=== PATIENT | female | born 1970 | race Caucasian/White ===

== ENCOUNTER 2021-07-06 14:10 | Inpatient (IN) ==
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
[2021-07-06] MEDS ORDERED: ONDANSETRON INJ 2 MG/ML 2 ML VIAL IV STA (14:31)
[2021-07-06] MEDS ORDERED: ACETAMINOPHEN 500 MG TAB PO STA (14:31)
[2021-07-06] MEDS ORDERED: MAGNESIUM SULFATE / D5W 1 GM/100 ML BAG IV ONE (14:31)
--- NOTE | 2021-07-06 15:01 | XRay Report ---
SINGLE VIEW CHEST CLINICAL HISTORY: Sepsis. FINDINGS: An AP, portable, upright chest radiograph is obtained. No prior studies are available for c omparison at the time of dictation. The examination is degraded by portable technique and patient ro tation. The cardiomediastinal silhouette is unremarkable. Question asymmetric airspace opacities at the left lung base. No large pleural effusion or pneumothorax is seen. The bony thorax is grossly int act. IMPRESSION: Question asymmetric airspace opacities at the left lung base. This could be related to pa tient rotation and atelectasis. Correlate clinically for evidence of a mild infectious/inflammatory p neumonitis. A dedicated PA and lateral examination could be considered for reassessment. ACT 112: Negative or not required by law. Electronically signed by: Figueroa Prescott M.D. 07/06/2021 3:00 PM
[2021-07-06 15:04] LABS: Appearance Urine Turbid (Clear); Bacteria Urine Automated 4+ (Negative); Bilirubin Urine Negative (Negative); Blood Urine Negative (Negative); Color Urine Dark Yellow; Epithelial Cell Urine Auto >30 /lpf (0-5); Glucose Urine UA Negative (Negative); Ketones Urine Negative (Negative); Leukocyte Esterase Urine 2+ (Negative); Nitrite Urine Positive (Negative); Protein Urine 1+ (Negative); Specific Gravity Urine 1.018 (1.000-1.030); Urobilinogen Urine Negative (Negative); WBC Urine Automated >30 /hpf (0-5)
[2021-07-06 15:08] LABS: Pregnancy Test, Urine Negative (Negative)
[2021-07-06 15:16] LABS: Eosinophils # (auto) 0.11 K/uL (0-0.5); Eosinophils % (auto) 2.6 %; Hematocrit (blood only) 39.2 % (37-47); Hemoglobin 12.8 g/dL (12.0-16.0); Immature Granulocytes # (auto) 0.01 K/uL (0.00-0.02); Immature Granulocytes % (auto) 0.2 %; Lymphocytes # (auto) 1.17 K/uL (1.2-3.4); Lymphocytes % (auto) 27.7 %; Mean Corpuscular Hemoglobin 25.7 pg (25-34); Mean Corpuscular Hgb Conc 32.7 g/dL (32-36); Mean Corpuscular Volume 78.6 fL (80-100); Mean Platelet Volume 9.5 fL (7.4-10.4); Monocytes # (auto) 0.49 K/uL (0.11-0.59); Monocytes % (auto) 11.6 %; Neutrophils # (auto) 2.44 K/uL (1.4-6.5); Neutrophils % (auto) 57.9 %; Platelet Count 177 K/uL (130-400); RDW Coefficient of Variation 14.6 % (11.5-14.5); RDW Standard Deviation 41.9 fL (36.4-46.3); Red Blood Count 4.99 M/uL (4.2-5.4); White Blood Count 4.22 K/uL (4.8-10.8)
[2021-07-06 15:21] LABS: Influenza A virus by PCR Negative (Negative); Influenza B virus by PCR Negative (Negative)
[2021-07-06 15:26] LABS: Partial Thromboplastin Ratio 1.2; Partial Thromboplastin Time 32.2 Seconds (21.0-31.0); Prothrombin Time 10.3 Seconds (9.0-12.0)
[2021-07-06] MEDS ORDERED: PIPERACILL/TAZOBAC CONSULT ACTIVE PRN ×2 (15:29→17:50)
[2021-07-06] MEDS ORDERED: PIPERACILLIN/TAZOBACTAM 4.5 GM/120 ML BAG IV ONE (15:29)
[2021-07-06] MEDS ORDERED: AZITHROMYCIN 250 MG TAB PO ONE (15:30)
[2021-07-06 15:38] LABS: Albumin Globulin Ratio 0.5 (0.9-2); Albumin Level 3.2 gm/dl (3.4-5.0); BUN Creatinine Ratio 21.3 (10-20); Bilirubin,Total 0.5 mg/dl (0.2-1.0); Calcium 8.4 mg/dl (8.5-10.1); Creatinine Clr Calc Pharmacy 89.2 ml/min; Est GFR (African American) 124.2 ml/min; Est GFR (Non-African American) 107.2 ml/min; Globulin 6.6 gm/dl (2.5-4.0); Potassium 4.2 mmol/L (3.5-5.1); Total Protein 9.8 gm/dl (6.0-8.3)
--- NOTE | 2021-07-06 16:34 | CT Scan Report ---
CT head/brain wo con CLINICAL HISTORY: 50 years-old Female with head/neck pain; ?sinusitis, untrx'ed HIV. Acute headache with sinusitis TECHNIQUE: Multiple axial CT images of the head were obtained without contrast. A dose lowering tech nique was utilized adhering to the principles of ALARA. CT DOSE: 788.63 mGycm COMPARISON: None. FINDINGS: No acute intracranial hemorrhage, midline shift, intracranial mass, acute territorial ischemia or abn ormal extra-axial collection. Prominence of the lateral ventricles measure up to 4.7 cm transversely. The third and fourth ventricles are also mildly prominent. Mild ill-defined hypodensities within the periventricular white matter. The calvarium is intact. Mastoid air cells are clear. Complete opacification of the frontal and imag ed maxillary sinuses with severe partial opacification of the ethmoid air cells. Small air-fluid leve ls within the sphenoid sinuses. IMPRESSION: 1. No acute intracranial hemorrhage, midline shift or acute territorial infarct. 2. Mild dilation of the ventricles may be on a physiologic basis, however should be correlated clinic ally and with prior imaging to exclude hydrocephalus. 3. Mild periventricular white matter hypodensities are nonspecific. Findings may represent chronic mi crovascular ischemic disease, demyelinating process or transependymal flow of CSF. 4. Severe paranasal sinus disease. ACT 112: Negative or not required by law. The above report was generated using voice recognition software. It may contain grammatical, syntax o r spelling errors. Electronically signed by: Alexandro Barnett M.D. 07/06/2021 4:33 PM
[2021-07-06] MEDS ORDERED: REMDESIVIR 200 MG in SODIUM CHLORIDE 0.9% 210 ML IV STA (16:44)
[2021-07-06] MEDS ORDERED: hydrALAZINE HCL 20 MG/ML VIAL IV ONE (16:45)
[2021-07-06] MEDS ORDERED: amLODIPine BESYLATE 5 MG TAB PO ONE (16:45)
--- NOTE | 2021-07-06 16:52 | Electrocardiogram Report ---
Test Reason : Blood Pressure : / mmHG Vent. Rate : 099 BPM Atrial Rate : 099 BPM P-R Int : 110 ms QRS Dur : 086 ms QT Int : 374 ms P-R-T Axes : 062 056 039 degrees QTc Int : 479 ms Sinus rhythm Voltage criteria for left ventricular hypertrophy Abnormal ECG No previous ECGs available Confirmed by Enoch Puentes ([id number]) on 07/06/2021 4:51:38 PM Referred By: REFERRED SELF Confirmed By:Pierre Puentes
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
[2021-07-06 19:03] LABS: Hepatitis B Surf Ag Rflx Conf Neg (Neg)
[2021-07-06] MEDS: hydrALAZINE HCL 20 MG/ML VIAL IV PRN (20:35)
[2021-07-06] MEDS: valACYclovir HCL 500 MG TABLET PO SCH (20:36)
[2021-07-06] MEDS: KETOROLAC TROMETHAMINE 15 MG/ML VIAL IV PRN (20:49)
[2021-07-06] MEDS: FLUTICASONE PROPIONATE NA SPR 16 GM BTL SCH (22:38)
[2021-07-06] MEDS: OXYMETAZOLINE 0.05% 30 ML BTL PRN (22:39)
[2021-07-06] MEDS: PIPERACILLIN/TAZOBACTAM 3.375 GM in DEXTROSE 5% 100 ML IV SCH (22:43)
[2021-07-06] MEDS: ACETAMINOPHEN 325 MG TAB PO PRN (23:57)
[2021-07-07] MEDS: KETOROLAC TROMETHAMINE 15 MG/ML VIAL IV PRN (02:43)
[2021-07-07] MEDS: PIPERACILLIN/TAZOBACTAM 3.375 GM in DEXTROSE 5% 100 ML IV SCH ×3 (05:53→21:54)
[2021-07-07] MEDS: hydrALAZINE HCL 20 MG/ML VIAL IV PRN ×2 (05:58→23:03)
[2021-07-07 07:19] LABS: Basophils # (auto) 0.01 K/uL (0-0.2); Basophils % (auto) 0.2 %; Eosinophils # (auto) 0.14 K/uL (0-0.5); Eosinophils % (auto) 3.4 %; Hematocrit (blood only) 36.3 % (37-47); Hemoglobin 11.9 g/dL (12.0-16.0); Immature Granulocytes # (auto) 0.01 K/uL (0.00-0.02); Immature Granulocytes % (auto) 0.2 %; Lymphocytes # (auto) 1.33 K/uL (1.2-3.4); Lymphocytes % (auto) 31.9 %; Mean Corpuscular Hemoglobin 25.8 pg (25-34); Mean Corpuscular Hgb Conc 32.8 g/dL (32-36); Mean Corpuscular Volume 78.6 fL (80-100); Monocytes % (auto) 9.6 %; Neutrophils # (auto) 2.28 K/uL (1.4-6.5); Neutrophils % (auto) 54.7 %; Platelet Count 187 K/uL (130-400); RDW Standard Deviation 43.1 fL (36.4-46.3); Red Blood Count 4.62 M/uL (4.2-5.4); White Blood Count 4.17 K/uL (4.8-10.8)
[2021-07-07 07:47] LABS: Albumin Level 2.9 gm/dl (3.4-5.0); BUN Creatinine Ratio 26.7 (10-20); Bilirubin Direct 0.1 mg/dl (0-0.2); Bilirubin,Total 0.6 mg/dl (0.2-1.0); Calcium 7.9 mg/dl (8.5-10.1); Creatinine Clr Calc Pharmacy 72.6 ml/min; Est GFR (African American) 109.2 ml/min; Est GFR (Non-African American) 94.3 ml/min; Magnesium 2.1 mg/dl (1.7-2.4); Potassium 3.8 mmol/L (3.5-5.1); Total Protein 8.8 gm/dl (6.0-8.3)
[2021-07-07] MEDS: AZITHROMYCIN 250 MG TAB PO SCH (08:28)
[2021-07-07] MEDS: FLUTICASONE PROPIONATE NA SPR 16 GM BTL SCH (08:28)
[2021-07-07] MEDS: valACYclovir HCL 500 MG TABLET PO SCH ×3 (08:28→21:51)
[2021-07-07] MEDS: ENOXAPARIN INJ 40 MG/0.4 ML SYR SQ SCH (08:28)
[2021-07-07] MEDS: OXYMETAZOLINE 0.05% 30 ML BTL PRN ×2 (08:29→23:02)
[2021-07-07] MEDS: amLODIPine BESYLATE 5 MG TAB PO SCH (08:38)
[2021-07-07] MEDS ORDERED: FLUTICASONE PROPIONATE NA SPR 16 GM BTL SCH (09:00)
[2021-07-07] MEDS: ACETAMINOPHEN 325 MG TAB PO PRN (13:59)
--- NOTE | 2021-07-07 14:55 | Hospitalist Progress Note ---
Date of Service July 07, 2021 Assessment & Plan (1) UTI (urinary tract infection): Plan: UTI acute asymtpomatic immunocompromised patient -> 100,000 gram negative organisms seen - Continue Zosny 4.5 mg IV q8 - Await culture (2) Acute sinusitis: Plan: seen on head CT with c/o severe sinus pain and pressure, headache, ongoing for months -continue Zosyn -add Afrin, FLonase will benefit from ENT evaluation as an outpt (3) COVID-19: Plan: First symptoms: ~ 07/01/21 First tested: in our system 07/06/21 Vaccinated: No Admission date: 07/06/21 Admission O2 requirement: room air Admission CRP:not ordered Dexamethasone course started: 07/07/21 Remdesivir started: 07/06/21 since is not hypoxic will d/c Tocilizumab given/baricitinib started: not meeting criteria due to oxygen not at level Antibiotics: Zosyn and Azithromycin (4) Hyponatremia: Plan: Na+ 132 no significant change from admission l could be from acute illness, hypovolemia (5) Hypertension: Plan: -started on Norvasc 5 mg - Will hold on JACOB inhibitor at this time secondary to COVID and following of renal function (6) HIV (human immunodeficiency virus infection): Plan: Reported positive by patient no history in our system for review - Not on any Suppressive medications or anti-virals - Mild leukopenia- may be from COVID - HIV PCR RNA titer, CD4, Quantiferon remain pending ID consult pending (7) Shingles: Plan: ? shingles but consistent pain unilateral along T4-T5 dermatome - start on Valacyclovir 1000mg PO TID empirically (8) Hepatitis C: Plan: known, since age 21 with elevated LFTs here was told she did not need treatment in the past HCV ab screen here positive await HCV viral RNA quant (9) Transaminitis: Plan: as above, could be 2/2 HCV but also could be from COVID improving with hydration Admission and Anticipated Discharge Date Admission Date: July 06, 2021 Subjective Patient awake alert appropriate complaining of continued bifrontal headache. States that her thoracic pain which she was attributing to possible shingles outbreak is improved. No other complaints or problems at this time. Review of Systems Review of Systems: Mild distress and fatigue Bifrontal headache, no visual changes no speech or swallowing issues no chest pain, pressure or palpitations no shortness of breath, cough or wheezes no abdominal pain, nausea or vomiting, diarrhea or constipation no dysuria, hematuria or frequency no focal joint pain or swelling no back pain, CVA tenderness or radicular pain No external signs of shingles at this point time no focal signs of weakness or numbness or altered sensation no complaints of anxiety or depression.. Physical Exam Physical Exam: The patient appeared well nourished and normally developed. Vital signs as documented. Head exam is normocephalic atraumatic Neck is without JVD, thyromegaly, or carotid bruits. Lungs are clear to auscultation, no focal loss of breath sounds Cardiac exam, Rhythm is regular.. No murmurs, rubs or gallops. Abdominal exam reveals normal bowel sounds, soft non tender, no masses Extremities are nonedematous and both pedal pulses are present Neurologic exam is alert and oriented, no focal loss of strength or sensation Skin is without bruises or rashes or signs of shingles Psychologically is without concerns for anxiety or depression.. Results & Data Results & Data ([facility]) Vital Signs (Past 12 Hours) Vital Signs Temp Pulse Resp BP Pulse Ox 07/07/21 11:37 97.9 F 108 H 18 135/77 100 07/07/21 07:48 97.5 F L 94 H 14 126/72 99 07/07/21 05:52 98.1 F 92 H 20 164/107 H 99 PG Care Time/CCT Total # of Minutes Spent Total Time Spent with Patient: Total time spent is greater than 50% in coordination of care (as documented) at patient's floor/unit and/or counseling patient: Coding Level of Care Code 16795 Subseq Hosp Care Lvl 2 Diagnoses UTI (urinary tract infection) N39.0; R31.9 Hematuria presence: with hematuria Urinary tract infection type: site unspecified Acute sinusitis J01.90 COVID-19 U07.1 Hyponatremia E87.1 Hypertension I10 Hypertension type: unspecified HIV (human immunodeficiency virus infection) B20 HIV symptom status: unspecified Shingles B02.9 Hepatitis C B19.20 Transaminitis R74.01 (1) UTI (urinary tract infection) Hematuria presence: with hematuria Urinary tract infection type: site unspecified Qualified Code(s): N39.0 - Urinary tract infection, site not specified; R31.9 - Hematuria, unspecified (2) HIV (human immunodeficiency virus infection) HIV symptom status: unspecified Qualified Code(s): B20 - Human immunodeficiency virus [HIV] disease (3) Hypertension Hypertension type: unspecified Qualified Code(s): I10 - Essential (primary) hypertension
[2021-07-07] MEDS ORDERED: dexAMETHasone 6 MG in SYRINGE 0 ML IV SCH (16:00)
[2021-07-07] MEDS ORDERED: REMDESIVIR 100 MG in SODIUM CHLORIDE 0.9% 230 ML IV SCH (20:00)
[2021-07-07] MEDS: ACETAMINOPHEN 500 MG TAB PO PRN (20:09)
[2021-07-07] MEDS: oxyCODONE HCL IR 5 MG TAB (IMMEDIATE RELEASE) PO PRN (23:13)
[2021-07-08] MEDS: PIPERACILLIN/TAZOBACTAM 3.375 GM in DEXTROSE 5% 100 ML IV SCH ×2 (05:15→13:15)
[2021-07-08 06:11] LABS: Hematocrit (blood only) 34.9 % (37-47); Hemoglobin 11.1 g/dL (12.0-16.0); Immature Granulocytes # (auto) 0.01 K/uL (0.00-0.02); Immature Granulocytes % (auto) 0.2 %; Lymphocytes # (auto) 1.23 K/uL (1.2-3.4); Lymphocytes % (auto) 25.3 %; Mean Corpuscular Hemoglobin 24.9 pg (25-34); Mean Corpuscular Hgb Conc 31.8 g/dL (32-36); Mean Corpuscular Volume 78.4 fL (80-100); Mean Platelet Volume 9.7 fL (7.4-10.4); Monocytes # (auto) 0.33 K/uL (0.11-0.59); Monocytes % (auto) 6.8 %; Neutrophils % (auto) 67.7 %; Platelet Count 188 K/uL (130-400); RDW Coefficient of Variation 14.8 % (11.5-14.5); RDW Standard Deviation 42.2 fL (36.4-46.3); Red Blood Count 4.45 M/uL (4.2-5.4); White Blood Count 4.87 K/uL (4.8-10.8)
[2021-07-08 06:30] LABS: BUN Creatinine Ratio 32.4 (10-20); Creatinine Clr Calc Pharmacy 73.5 ml/min; Est GFR (Non-African American) 95.8 ml/min; Magnesium 2.1 mg/dl (1.7-2.4); Potassium 4.1 mmol/L (3.5-5.1)
[2021-07-08] MEDS: oxyCODONE HCL IR 5 MG TAB (IMMEDIATE RELEASE) PO PRN ×3 (07:30→21:34)
[2021-07-08] MEDS: valACYclovir HCL 500 MG TABLET PO SCH ×2 (09:02→13:17)
[2021-07-08 10:07] LABS: Quantiferon Mitogen-NIL >10.00 IU/mL; Quantiferon NIL 0.05 IU/mL; Quantiferon TB Gold Plus NEGATIVE (NEGATIVE); Quantiferon TB1-NIL <0.00 IU/mL; Quantiferon TB2-NIL <0.00 IU/mL
[2021-07-08] MEDS: FLUTICASONE PROPIONATE NA SPR 16 GM BTL SCH ×2 (10:41→21:21)
[2021-07-08] MEDS: ENOXAPARIN INJ 40 MG/0.4 ML SYR SQ SCH (10:42)
[2021-07-08] MEDS: amLODIPine BESYLATE 5 MG TAB PO SCH (10:43)
[2021-07-08] MEDS: OXYMETAZOLINE 0.05% 30 ML BTL PRN (10:43)
[2021-07-08] MEDS: AZITHROMYCIN 250 MG TAB PO SCH (10:43)
--- NOTE | 2021-07-08 12:06 | CT Scan Report ---
CT OF THE CHEST WITHOUT IV CONTRAST CLINICAL HISTORY: Shortness of breath. HIV, ?PJP COMPARISON STUDY: Chest radiograph September 03, 2021. CT DOSE: 218.88 mGycm TECHNIQUE: Axial images of the chest were obtained without IV contrast. Images were reviewed in the axial, sagittal, and coronal planes. IV contrast was not administered for this examination. Automat ed exposure control was utilized for the study. A dose lowering technique was utilized adhering to t he principles of ALARA. FINDINGS: Note is made of a mildly enlarged left lower cervical lymph node on axial image 23 of 281. This node measures 1.8 x 1.1 cm. No enlarged axillary, mediastinal or hilar lymph nodes are present. Prominent right internal mammary chain lymph node measures 8 mm short axis diameter, axial images 91 of 281. No pneumothorax or pleural effusion is noted. Central airways are patent. Minimal subpleural ground glass opacities within the lingula and right middle lobe favor atelectasis. There are no grou nd glass opacities to suggest an infectious process. No acute fracture or suspicious lesion is identi fied within visualized portions of the bony thorax. Borderline splenomegaly is partially imaged on th is exam. Upper abdomen is otherwise unremarkable. IMPRESSION: 1. Minimal subpleural groundglass opacities within the lingula and right middle lobe which favor atel ectasis. No ground glass opacities to suggest an infectious process. 2. Mildly enlarged left lower cervical lymph node. A few additional prominent thoracic lymph nodes, a s described above. 3. Borderline splenomegaly, partially imaged on this exam. ACT 112: Negative or not required by law. Electronically signed by: Corby Duenas M.D. 07/08/2021 12:04 PM
--- NOTE | 2021-07-08 19:08 | Hospitalist Progress Note ---
Date of Service July 08, 2021 Assessment & Plan (1) UTI (urinary tract infection): Plan: To clarifyasymptomatic bacteriuria. Does not have UTI. Agree with infectious disease physician that no antibiotics are warranted. Zosyn stopped (2) Acute sinusitis: Plan: Strongly suspect this is predominantly allergicshe notes that she lives in a house with mold in the basement which she is allergic. She wonders if she has a fungal sinusitisI noted this would not likely be the case, but an allergic reaction/allergic sinusitis related to the house mold would be reasonably probable. Flonase twice daily, Singulair and Benadryl. At discharge, can instruct on nasal irrigation. If this does not improve symptoms, then would ask infectious disease for input on this, as well as probably having her see allergy (3) COVID-19: Plan: First symptoms: ~ 07/01/21 First tested: in our system 07/06/21 Vaccinated: No Doing well, symptoms could all really be attributed to her chronic sinusitis which is likely allergic. She is several days post positive test and about a week post onset of any kind of change in symptoms. No treatment warranted (4) Hyponatremia: Plan: Na+ 132 no significant change from admission l could be from acute illness, hypovolemia (5) Hypertension: Plan: Outpatient follow-up (6) HIV (human immunodeficiency virus infection): Plan: HIV specific labs pending, infectious disease input greatly appreciated. Biktarvy to be started at discharge, outpatient ID follow-up (7) Shingles: Plan: Has had pain for several days, on clarification she notes it is down the side of her neck and left shoulder, and she wonders if it is unrelated to her upper respiratory symptoms. She has absolutely no rash no vesicles no erythema and no focal skin tenderness, and her symptoms across several dermatomesnothing about this appears consistent with shingles, Valtrex stopped (8) Hepatitis C: Plan: known, since age 21 with elevated LFTs here was told she did not need treatment in the past HCV ab screen here positive await HCV viral RNA quant Outpatient follow-up and treatments for this as well (9) Transaminitis: Plan: Outpatient follow-up Plan: Hopefully home tomorrow Admission and Anticipated Discharge Date Admission Date: July 06, 2021 Subjective Generally feeling better, but still unsteady on her feet. Headache finally letting up. Notes sinus congestion symptoms but not a whole lot else. No dysuria. No shortness of breath. Review of Systems Review of Systems: In general she is awake and alert pleasant no distress. HEENT normocephalic atraumatic mucous membranes moist. Breathing unlabored no accessory muscle use good effort. Skin shows no rashes no pallor or icterus. Neuro without focal deficits. Results & Data Results & Data ([facility]) Vital Signs (Past 12 Hours) Vital Signs Temp Pulse Resp BP Pulse Ox 07/08/21 07:15 98.1 F 97 H 18 164/87 H 99 PG Care Time/CCT Total # of Minutes Spent Total Time Spent with Patient: Total time spent is greater than 50% in coordination of care (as documented) at patient's floor/unit and/or counseling patient: Coding Level of Care Code 90934 Subseq Hosp Care Lvl 3 Diagnoses UTI (urinary tract infection) N39.0; R31.9 Hematuria presence: with hematuria Urinary tract infection type: site unspecified Acute sinusitis J01.90 COVID-19 U07.1 Hyponatremia E87.1 Hypertension I10 Hypertension type: unspecified HIV (human immunodeficiency virus infection) B20 HIV symptom status: unspecified Shingles B02.9 Hepatitis C B19.20 Transaminitis R74.01 (1) UTI (urinary tract infection) Hematuria presence: with hematuria Urinary tract infection type: site unspecified Qualified Code(s): N39.0 - Urinary tract infection, site not specified; R31.9 - Hematuria, unspecified (2) Hypertension Hypertension type: unspecified Qualified Code(s): I10 - Essential (primary) hypertension (3) HIV (human immunodeficiency virus infection) HIV symptom status: unspecified Qualified Code(s): B20 - Human immunodeficiency virus [HIV] disease
[2021-07-08] MEDS: MONTELUKAST SODIUM 10 MG TABLET PO SCH (21:20)
[2021-07-08] MEDS: diphenhydrAMINE Capsule 25 MG CAP PO SCH (21:20)
[2021-07-09] MEDS: FLUTICASONE PROPIONATE NA SPR 16 GM BTL SCH ×2 (08:54→19:52)
[2021-07-09] MEDS: amLODIPine BESYLATE 5 MG TAB PO SCH (08:55)
[2021-07-09] MEDS: ENOXAPARIN INJ 40 MG/0.4 ML SYR SQ SCH (08:55)
[2021-07-09] MEDS: oxyCODONE HCL IR 5 MG TAB (IMMEDIATE RELEASE) PO PRN ×3 (09:12→21:12)
[2021-07-09 11:32] LABS: HIV 1 RNA PCR Copies/ML 176000 copies/mL (NOT DETECTED); HIV-1 RNA Log Copies/mL 5.25 (NOT DETECTED); Hepatitis A Antibody IgM NON-REACTIVE (NON-REACTIVE); Hepatitis B Core Antibody IgM NON-REACTIVE (NON-REACTIVE); Hepatitis C Vira RNA (Log) PCR 6.62 Log IU/mL (NOT DETECTED); Hepatitis C Viral RNA by PCR 4150000 IU/mL (NOT DETECTED)
[2021-07-09] MEDS: ACETAMINOPHEN 500 MG TAB PO PRN (19:51)
[2021-07-09] MEDS: MONTELUKAST SODIUM 10 MG TABLET PO SCH (19:51)
[2021-07-09] MEDS: diphenhydrAMINE Capsule 25 MG CAP PO SCH (19:53)
--- NOTE | 2021-07-09 20:05 | Discharge Summary ---
Date of Service July 09, 2021 Admission HPI Per Admitting Provider 50 YOF with past medical history of: HIV- diagnosed ~ 10 years ago (not on any chronic therapy), IV drug abuse quit 10 years ago, Smoker (quit 3 months ago), sinus congestion, shingles. Patient comes in to the [facility] today for evaluation of left sided neck, shoulder, and chest wall pain. She was subsequently found to have COVID 19 and UTI on lab work up. She was started on Zosyn for her UTI and Azithromycin for her COVID. Overall patient reports being diagnosed with HIV ~ 10 years ago likely from IV drug abuse- she reports being diagnosed at [facility] possibly and can not recall her physician's name. She states that she was on one medication but can't remember what it was. She relocated to this area approx 3 years ago and has not been back to follow up with her HIV team or establish PCP care here. She reports that she had shingles about 2 years ago on the right side and her pain is very similar to that. It started in her left upper back and comes down around her shoulder blade to mid axillary line. This is painful to touch and does not hurt with shoulder rotation. Patient is also noted to be hypertensive while in the [facility] and has not been on any medications for this in the past. For her COVID she does have sinus congestion however she endorses this as chronic over the past 6 months following mold exposure in her basement. She may have felt warm 3 days ago like she had a fever, but did not check her temperature. She has had mild sore throat and body myalgias that have mostly resolved. Patient will be admitted and receive Remdesevir, her HIV status, CD4 count, continue antibiotics as above, and Valacyclovir PO for possible shingles. Will consult ID for her HIV management recommendations. Patient is not vaccinated against COVID and her COVID test on admission is: POSITIVE Principal Diagnosis Mild Covid, chronic sinusitis Discharge Exam General she is awake and alert pleasant no distress. HEENT normocephalic atraumatic mucous membranes moist. Lungs are clear to auscultation bilaterally no rales rhonchi or wheezes good effort. No accessory muscle use. No conversational dyspnea. Skin shows no rashes no pallor or icterus. Neuro without focal deficits. Discharge Data Allergies Allergy/AdvReac Type Severity Reaction Status Date / Time No Known Allergies Allergy Unverified 07/06/21 16:57 Consultations 07/06/21 15:51 ED Decision to Admit Stat 07/06/21 17:50 Consult Infectious Diseases Routine Ordered Studies 07/06/21 14:31 CT head/brain wo con Stat 07/08/21 09:28 CT chest diagnostic wo con Routine Hospital Course (1) UTI (urinary tract infection): To clarifyasymptomatic bacteriuria. Does not have UTI. Agree with infectious disease physician that no antibiotics are warranted. Zosyn stopped, no symptoms developed (2) Acute sinusitis: Strongly suspect this is predominantly allergicshe notes that she lives in a house with mold in the basement which she is allergic. She wonders if she has a fungal sinusitisI noted this would not likely be the case, but an allergic reaction/allergic sinusitis related to the house mold would be reasonably probable. Flonase twice daily, Benadryl at bedtime and saline for nasal irrigation. If this does not improve symptoms, then would ask infectious disease for input on the remote and unlikely probability of an actual fungal sinusitis, as well as probably having her see smash piecer, but hopefully above treatment will improve her symptoms. (3) COVID-19: First symptoms: ~ 07/01/21 First tested: in our system 07/06/21 Vaccinated: No Doing well, symptoms could all really be attributed to her chronic sinusitis which is likely allergic. She is several days post positive test and about a week post onset of any kind of change in symptoms. No treatment warranted (4) Hyponatremia: Na+ 132 no significant change from admission l could be from acute illness, hypovolemia (5) Hypertension: Outpatient follow-up (6) HIV (human immunodeficiency virus infection): HIV specific labs pending, infectious disease input greatly appreciated. Biktarvy to be started at discharge, outpatient ID follow-up (7) Shingles: Has had pain for several days, on clarification she notes it is down the side of her neck and left shoulder, and she wonders if it is unrelated to her upper respiratory symptoms. She has absolutely no rash no vesicles no erythema and no focal skin tenderness, and her symptoms across several dermatomesnothing about this appears consistent with shingles, Valtrex stopped (8) Hepatitis C: known, since age 21 with elevated LFTs here was told she did not need treatment in the past HCV ab screen here positive await HCV viral RNA quant Outpatient follow-up and treatments for this as well (9) Transaminitis: Outpatient follow-uplikely relates to hep C Stable for home, PCP and infectious disease follow-up being arranged Total Time Total Time Spent Total Time Spent (In Minutes): Less than 30 Discharge Plan Discharge Items Patient Disposition: Home - Self-Care Reason For Visit: HIV, COVID 19, ? SHINGLES Discharge Diagnosis: mild covid Activity: Resume your previous activity Non-emergency contact: Primary Care Provider and Specialist Call non-emergency contact if: you have any medication questions and your symptoms worsen Follow-up/Referrals: Hoang Miller MD [Outside Practitioners] - 07/16/21 12:00 pm (To become established with [facility]. They will send you an appointment reminder via email. Please bring photo ID and your insurance card to this appointment if possible. ) Jhonny Zarate II, DO [Physician] - 09/02/21 9:00 am (Appointment will be at [address] [place] [address].) Diet: Regular Addtl Attending Provider Instructions: Mild Covid -Fortunately, while you did test positive for Covid, your symptoms appear to be very mildreally given that your sinus congestion could be more easily explained by the chronic allergic sinusitis, I question whether you had any symptoms at all as it relates directly to Covid. -Fortunately because of this, no specific treatment is needed, and is quite safe to be home -Given that you first tested positive on 07/06, and have not developed any serious symptoms by now, it is highly unlikely that you will. That said, of course, if you start to develop shortness of breath or high feverswe would definitely want you seen again -By guidelines, you should quarantine until 07/11, and then wear a mask when around others for 5 days thereafter Sinusitis -You definitely have pretty significant sinusitis, as we discussed, I strongly suspect it is predominantly allergic. While you do have a mold in the basement, it is not likely that the sinusitis is actually a fungal infection itself, much more likely it is an allergic reaction to the constant exposure. Your CT scan does show severe sinusitis type features, but nothing consistent with a fungus ball/etc. -We will manage the sinusitis symptoms fairly aggressively as though it is allergicFlonase (fluticasone) twice a day (the nasal steroids like this tends to be the most effective "stand-alone" treatment for allergic sinusitis), and will use an antihistamine with Benadryl at bedtime -Give it a good month or soif your symptoms are not improving/worsening, then we will want to look into things furtherto that end Dr. Zarate would be able to give thoughts as to whether or not there truly is a fungal infection going on, and we would also at the same time ask that you get referred to an smash piecer (given that the most likely reason for failure to improve or worsening would simply be allergic sinusitis that is refractory to our current treatment) HIV -Most of your "important" HIV labs (CD4, HIV genotyping, etc.) are still pendingthose labs should be back by next week. This will help guide you and Dr. Zarate as far as further treatment -In the meantime, he has recommended that we start you on Biktarvy once a dayprescription has been sent -As we have been discussing, most people do very well with HIV treatment in the modern era. To that end the most important thing for you would be to make sure that you do not "slip through the cracks"fortunately are now set up with Dr. Zarate, and he is excellent with this kind of disease management Hepatitis C -Your preliminary labs do look consistent with hepatitis C as well. The follow-up labs that are more specific are still pendingand they should be back around the same time as the above-mentioned HIV labs -Your liver does show a very mild degree of inflammationnothing out of the ordinary for hepatitis C, and certainly nothing that warrants immediate concern; really just for ongoing follow-up -Fortunately, we now live at a time where hepatitis C is usually quite effectively treatedDr. Zarate can guide you on this as well -Because there is a mild degree of liver inflammation, I would definitely have you refrain from any alcohol, and while pain medicine such as Tylenol and ibuprofen will be safe and reasonable doses, I would have you stay less than 2000 mg in any given day with Tylenol, and less than about 600 mg 3 times a day with ibuprofenand I would definitely only have you use either for a short period of time (such as a few days) before stopping for a while Elevated blood pressure -Your blood pressures do look a bit elevated, consistent with probably a base line of hypertension. To that end, we have started a medicine called amlodipineand you seem to be tolerating it quite well. When you get set up with your family doctor (which is in process as we speak) they will take control of evaluating your blood pressure, and adjusting or changing medicines if necessary Pending Studies at Discharge: Yes (HIV, hep C labs) Stand-Alone Forms: My [facility], Smoking Cessation Medications and DC Order Prescriptions: New diphenhydramine HCl [Benadryl] 25 mg capsule 25 mg PO HS Qty: 30 RF: 0 fluticasone propionate [Flonase Allergy Relief] 50 mcg/actuation spray,suspension 1 spray intranasal BID Qty: 16 RF: 0 acetaminophen 500 mg capsule 500 mg PO Q6H PRN (Reason: pain) Qty: 90 RF: 0 ibuprofen 600 mg tablet 600 mg PO Q8H PRN (Reason: pain) Qty: 30 RF: 0 amlodipine [Norvasc] 5 mg Tablet 5 mg PO QAM Qty: 30 RF: 0 Biktarvy 50-200-25 mg tablet 1 tab PO DAILY Qty: 30 RF: 0 Discharge Orders: Discharge Order (Routine); Ordered 07/09/21 Ordered By: Isidro Childs Admission Data Admit Date/Time: 07/06/21 16:31 Attending Provider: Isidro Childs Admit Provider: Kristy Arnold Primary Care Provider: PCP,NO Other Providers: Kristy Arnold ; Darrin Ann ; Marietta Epps ; Connor Mead I. ; Jhonny Zarate II ; Aleyda Barbour ; Eriberto Yu ; Richard Gonzalez Other Interventions: Discharge Summary Assessment (RN) Last Done: 07/09/21 15:55 Coding Level of Care Code D/C DAY MANAGEMENT <30 MINS Diagnoses UTI (urinary tract infection) N39.0; R31.9 Hematuria presence: with hematuria Urinary tract infection type: site unspecified Acute sinusitis J01.90 COVID-19 U07.1 Hyponatremia E87.1 Hypertension I10 Hypertension type: unspecified HIV (human immunodeficiency virus infection) B20 HIV symptom status: unspecified Shingles B02.9 Hepatitis C B19.20 Transaminitis R74.01
[2021-07-10 00:50] LABS: LSP % Cells Analyzed CD4 22 % (30-61); LSP Absolute Ct CD4 215 cells/uL (490-1740); LSP Lymphocytes Absolute 992 cells/uL (850-3900)
[2021-07-10] MEDS: ENOXAPARIN INJ 40 MG/0.4 ML SYR SQ SCH (08:12)
[2021-07-10] MEDS: ACETAMINOPHEN 500 MG TAB PO PRN ×2 (08:12→16:06)
[2021-07-10] MEDS: FLUTICASONE PROPIONATE NA SPR 16 GM BTL SCH (08:13)
[2021-07-10] MEDS: amLODIPine BESYLATE 5 MG TAB PO SCH (08:13)
[2021-07-10] MEDS: oxyCODONE HCL IR 5 MG TAB (IMMEDIATE RELEASE) PO PRN (09:00)
--- NOTE | 2021-07-10 15:40 | Communication Note ---
Date of Service: July 10, 2021 This patient was discharged on 07/09/[address] Watters now however she can procure no transportation home. Subsequently case management has coordinated transportation home for her today on 07/10/2021. I visited the patient independently she had no new complaints or problems her physical exam and remained stable without evidence of respiratory distress with clear lungs. She voiced an understanding of the treatment plan has been outlined in Dr. Dewey hours now including establishing care with infectious disease in [facility] and institution of anti-HIV medications. The patient will be allowed to be discharged once transportation is arranged to take her to her home we are attempting to have a be meds to beds program deliver medications to her before she goes home.
[2021-07-13 14:01] LABS: HIV 1,2 Ag,Ab 4th gen REPEATEDLY REACTIVE (NON-REACTIVE)
[2021-07-14 12:15] LABS: HIV 1 Ab POSITIVE (NEGATIVE); HIV 2 Ab NEGATIVE (NEGATIVE)
== END 2021-07-10 17:14 | disposition home or self-care (01) | DRG 689 ==
LOC: ED 14:10 → EDINP 16:31 → SUATTDRO 16:31 → 2S 17:49 → 3E 07-07 16:57